=== PATIENT | female | born 1990 ===

== ENCOUNTER 2018-06-28 22:20 | Emergency (ER) | payer MEDICAID ==
[2018-06-28 22:32] VITALS: BP 118/80; PULSE 96; RESP 18; TEMP 98; O2SAT 98
--- NOTE | 2018-06-28 23:44 | C.PDOC ---
History Of Present Illness Patient c/o frontal headache that started 1 h prior to arrival. Patient sts she didn't take any medications because she doesn't know if she is . Patient sts her LMP was in April 2018. Patient denies any fever, respiratory symptoms, dizziness, numbness, weakness, visual changes, photophobia, nausea or vomiting. Patient denies any head injury. Patient sts she has h/o intermittent headaches that are similar to the current one. Time Seen by Provider: 06/28/18 22:43 Chief Complaint (Nursing): Headache Onset/Duration Of Symptoms: Hrs (1) Severity: Moderate Pain Scale Rating Of: 5 Quality: "Pain" Preceeding Symptoms: None Associated Symptoms: denies: Photophobia, Blurred Vision, Nausea, Vomiting, Extremity Weakness Past Medical History Reviewed: Historical Data, Nursing Documentation, Vital Signs Vital Signs: Last Vital Signs Temp 98 F 06/28/18 22:28 Pulse 96 H 06/28/18 22:28 Resp 18 06/28/18 22:28 BP 118/80 06/28/18 22:28 Pulse Ox 98 06/28/18 23:44 - Medical History PMH: No Chronic Diseases Family History: States: No Known Family Hx - Social History Hx Tobacco Use: No Hx Alcohol Use: No Hx Substance Use: No - Immunization History Hx Tetanus Toxoid Vaccination: No Hx Influenza Vaccination: No Hx Pneumococcal Vaccination: No Review Of Systems Except As Marked, All Systems Reviewed And Found Negative. Physical Exam - Physical Exam Appears: Well, Non-toxic, Toxic Skin: Normal Color, Dry, No Rash Head: Atraumatic, Normacephalic Eye(s): bilateral: Normal Inspection, PERRL, EOMI Neck: Normal ROM, No Supple Chest: Symmetrical, No Tenderness Cardiovascular: Rhythm Regular Respiratory: Normal Breath Sounds Gastrointestinal/Abdominal: Soft, No Tenderness Back: No Vertebral Tenderness, No Paraspinal Tenderness Extremity: Normal ROM, No Tenderness Neurological/Psych: Oriented x3, Normal Speech, Normal Cognition, Normal Cranial Nerves, Normal Motor, Normal Sensation ED Course And Treatment O2 Sat by Pulse Oximetry: 98 Progress Note: POC test is negative. Patient was treated with Tylenol with complete resolving of headache. Patient is ambulatory, no neuro deficit. She is stable to be d/c home with PMD follow up. Disposition - Disposition Referrals: Fito Alvarez MD [Primary Care Provider] - Disposition: HOME/ ROUTINE Disposition Time: 23:42 Condition: STABLE Additional Instructions: Follow up with PMD within 1-2 days. Return to ED if feel worse. Prescriptions: Acetaminophen [Tylenol 325mg tab] 2 tab PO Q6 #50 tab Instructions: Headache, Adult Forms: [facility] ([facility]) - Clinical Impression Clinical Impression: Headache
== END 2018-06-29 00:02 | disposition home or self-care (01) ==
LOC: SUPCPDRO 22:20 → C.ER 22:20
DX: R51 Headache (principal)